=== PATIENT | male | born 1965 | race Caucasian/White ===

== ENCOUNTER 2020-02-07 15:07 | Emergency (ER) | payer OTHER ==
[~2020-02-07] VITALS: Ht 175.3 cm; Wt 75.9 kg
[2020-02-07 15:16] VITALS: BP 140/79
--- NOTE | 2020-02-07 15:21 | NUR ---
Pt to room from triage, ambulatory with steady gait.
[2020-02-07] MEDS ORDERED: LIDOCAINE-MPF 1%, 5ML ONE ×2 (15:24→16:38)
[2020-02-07] MEDS ORDERED: DIPH,PERTUSS(ACELL),TET VAC/PF 0.5 ML IM-VACC ONE ×2 (15:26→15:30)
[2020-02-07] MEDS ORDERED: HYDROmorphone 1 MG/ML, 1ML INJ ONE (15:26)
[2020-02-07] MEDS ORDERED: ONDANSETRON ODT 4 MG PO ONE (15:30)
[2020-02-07] MEDS ORDERED: LIDOCAINE-MPF 1%, 5ML INFIL ONE (15:30)
[2020-02-07] MEDS ORDERED: HYDROmorphone 1 MG/ML, 1ML INJ IM ONE (15:30)
--- NOTE | 2020-02-07 15:30 | NUR ---
Pt states that today cut tip off L thumb and L 3rd finger with chop saw. Pt's L thumb distal to thumb joint ends in jagged wound with phalange bone visible in tissue. Bleeding oozing slowly from wound, controlled with pressure dressing. L 3rd finger pad with small jagged wound, bleeding also oozing, controlled with pressure dressing. Bill STEWART at bedside to administer digital block. Pt medicated per order with 1mg Dilaudid IM as well as TDAP vaccine. Pt denies other needs.
--- NOTE | 2020-02-07 15:37 | NUR ---
food technology teacher at bedside to perform ordered studies.
--- NOTE | 2020-02-07 16:03 | NUR ---
Laura [employer] Supervisor [phone]
--- NOTE | 2020-02-07 16:34 | NUR ---
Pt states pain improved after medications given, /10 at this time. Pt resting in bed talking on his phone, NAND. Bill STEWART at bedside to repair laceration to L 3rd finger. Report given to Katelynn SIN, care transfered.
--- NOTE | 2020-02-07 17:07 | NUR ---
EMT APPLIED DRESSING, DICHARGE INSTRUCTIONS REVIEWED
== END 2020-02-07 17:45 | disposition home or self-care (01) ==
LOC: EDBD 15:07 → ED 17:28 → EDBD 17:28 → ED 17:45
DX: S61.213A Laceration without foreign body of left middle finger without damage to nail, initial encounter (principal); Z89.012 Acquired absence of left thumb; W26.8XXA Contact with other sharp object(s), not elsewhere classified, initial encounter; Y93.89 Activity, other specified; Y92.098 Other place in other non-institutional residence as the place of occurrence of the external cause; Y99.8 Other external cause status
CPT/HCPCS: 12041; 73130; 90471; 90715; 96372; 99284; J1170